=== PATIENT | female | born 1990 | race Caucasian/White ===

== ENCOUNTER 2019-05-19 12:08 | Emergency (ER) | payer MEDICAID, SELFPAY ==
[2019-05-19 12:11] VITALS: BP 125/94; PULSE 112; RESP 18; TEMP 36.6; O2SAT 96; BMI 34.8
--- NOTE | 2019-05-19 14:04 | ED.DCSUM_ITS ---
- ER Visit Summary Date of Service: 05/19/19 Chief Complaint: Back pain History of Present Illness: The patient is a 29 F who states she has a long history of back pain. She reports that she has been just dealing with it years. Today she is at work bent over and had pain in the left low back into the left buttock and down the leg. She states that the foot feels numb. She needs tingling. She states it hurts so bad she can barely move. She is a smoker. She recently started seeing Dr. Almonte is being treated for GERD and urticaria. She denies any bowel or bladder dysfunction. No saddle anesthesia. Patient is a former methamphetamine addict Physical Examination: Afebrile vital signs stable Gen: Well-nourished well-developed Head: Normocephalic atraumatic Eyes: Perrl EOMI ENT: TMs clear no rhinorrhea moist mucous membranes Neck: Supple no lymphadenopathy no JVD nontender CVS: Regular rate rhythm no murmurs normal S1-S2 Respiratory: No distress clear to auscultation bilaterally chest nontender Abdomen: Soft nontender nondistended normal bowel sounds no masses Back: Palpation in the left lower lumbar paraspinal musculature as well as in the left buttock Extremity: Nontender no edema Skin: Normal color no rash Neuro: alert orientated ?3 CN II-XII intact normal strength sensation normal deep tendon reflexes in the Achilles and the patella Psych: Normal affect normal mood Emergency Department Course and Treatment: Discussed at the bedside with the patient and family do not believe plain x-rays are indicated. Do not believe that she has sustained a broken vertebrae. I do not feel that an emergent MRI is needed. She has no signs or symptoms of cauda equina. Is most likely acute sciatica. Treated initially with Toradol and Norflex and she stated that she still could not really move because of the pain. I gave her additional morphine. I would write for [place] Toradol and Flexeril. Patient is a former methamphetamine abuser. I recommend she follow-up early with her family doctor. Impression: 1. Left sciatica This note was generated with [employer] software. It may contain incorrect words, spelling, and punctuation that were not noted in review of the chart prior to signing ED Disposition - Plan for ED Patient: Disposition: Home or Assisted Living Instructions: BACK PAIN w/ SCIATICA Prescriptions: cycloBENZAPRine HCl [Flexeril] 10 mg PO TID PRN #15 tab PRN Reason: Muscle Spasm Prescription Printed Hydrocodone Bitart/Apap 5-325 [[place] 5MG-325MG] 1 tab PO Q6H PRN PRN 3 Days #12 tab PRN Reason: Pain Prescription Printed Ketorolac [Toradol] 10 mg PO Q8H PRN #15 tab PRN Reason: Pain Prescription Printed Referrals: Grace Montoya MD [Primary Care Provider] - 3-5 Days
[2019-05-19] MEDS: Orphenadrine 60 MG/2 ML Ampul IM (14:19)
[2019-05-19] MEDS: Ketorolac 60 MG/2 ML Vial IM (14:20)
[2019-05-19 14:51] VITALS: BP 115/76; PULSE 75; RESP 14
[2019-05-19] MEDS: morphine 10 MG/ML Syringe IM (15:23)
--- NOTE | 2019-05-19 15:49 | ED.RN ---
PT WAS UNABLE TO TOLERATE STANDING DUE TO PAIN UPON FIRST D/C. DR CANDELARIO WAS MADE AWARE. PT WAS MEDICATED WITH MORPHINE. REPORTS RELIEF. WAS TAKEN OFF DEPARTMENT VIA WHEELCHAIR.
== END 2019-05-19 15:48 | disposition home or self-care (01) ==
PROVIDERS: Emergency Provider Emergency Medicine; Family Provider Internal Medicine; PCP Internal Medicine
DX: M54.42 Lumbago with sciatica, left side (principal); L50.9 Urticaria, unspecified; K21.9 Gastro-esophageal reflux disease without esophagitis; Z72.0 Tobacco use; Z79.899 Other long term (current) drug therapy
CPT/HCPCS: 96372; 99282